=== PATIENT | male | born 1970 | race African-American/Black ===

== ENCOUNTER 2023-12-25 13:38 | Emergency (ER) | payer SELFPAY ==
[~2023-12-25] VITALS: Ht 182.9 cm; Wt 110.0 kg
[2023-12-25 13:41] VITALS: BP 110/89; PULSE 71; RESP 18; TEMP 98.3; O2SAT 99
== END 2023-12-25 16:50 | disposition home or self-care (01) ==
LOC: ER 13:38
DX: H33.21 Serous retinal detachment, right eye (principal); H54.7 Unspecified visual loss
CPT/HCPCS: 99281